=== PATIENT | female | born 1960 | race Caucasian/White ===

== ENCOUNTER 2018-06-05 19:43 | Inpatient (IN) | payer MEDICARE, OTHER ==
[2018-06-05 20:55] LABS: BASO % 0.6 % (0.0-2.0); EOS # 0.1 K/uL (0.0-0.7); EOS % 1.5 % (0.0-4.0); HEMOGLOBIN 9.5 g/dL (11.0-16.0); LYMPH # 1.7 K/uL (1.0-4.3); LYMPH % 44.6 % (20.0-40.0); MEAN CORPUSCULAR HEMOGLOBIN 23.3 pg (27.0-31.0); MEAN CORPUSCULAR HGB CONC 30.7 g/dL (33.0-37.0); MEAN PLATELET VOLUME 9.3 fL (7.2-11.7); MONO # 0.1 K/uL (0.0-0.8); MONO % 3.5 % (0.0-10.0); NEUT # 1.9 K/uL (1.8-7.0); NEUT % 49.8 % (50.0-75.0); NRBC % 0.1 % (0.0-2.0); RBC 4.06 Mil/uL (3.80-5.20); RED CELL DISTRIBUTION WIDTH 17.8 % (11.5-14.5); WHITE BLOOD COUNT 3.8 K/uL (4.8-10.8)
[2018-06-05 21:05] LABS: INR 1.1; PROTHROMBIN TIME 11.8 SECONDS (9.7-12.2)
--- NOTE | 2018-06-05 21:05 | C.PDOC ---
History Of Present Illness 57 y/o female presents to ED complaining of left sided chest pressure radiating up to her neck and numbness in her left arm, and a sensation that her AICD is vibrating since yesterday. States that shes had her AICD for approximately 7 years. Patients specialist is at a [facility] [place] who saw her one month ago and states that the leads were out of place and needs to be replaced. Denies cough, SOB, fever, or firing of AICD. Time Seen by Provider: 06/05/18 20:04 Chief Complaint (Nursing): Chest Pain History Per: Patient History/Exam Limitations: no limitations Onset/Duration Of Symptoms: Days Current Symptoms Are (Timing): Still Present Past Medical History Reviewed: Historical Data, Nursing Documentation, Vital Signs Vital Signs: Last Vital Signs Temp 98.6 F 06/05/18 19:53 Pulse 80 06/05/18 19:53 Resp 16 06/05/18 19:53 BP 116/74 06/05/18 19:53 Pulse Ox 99 06/05/18 19:53 - Medical History PMH: Back Problems, CHF, HTN Family History: States: No Known Family Hx - Social History Hx Alcohol Use: No Hx Substance Use: No - Immunization History Hx Tetanus Toxoid Vaccination: No Hx Influenza Vaccination: Yes Hx Pneumococcal Vaccination: No Review Of Systems Constitutional: Negative for: Fever Cardiovascular: Positive for: Other (left sided chest pressure radiating to neck) Respiratory: Negative for: Cough, Shortness of Breath Neurological: Positive for: Numbness (in L arm) Physical Exam - Physical Exam Appears: Non-toxic, No Acute Distress Skin: Warm, Dry Head: Atraumatic, Normacephalic Eye(s): bilateral: Normal Inspection Oral Mucosa: Moist Neck: Supple Cardiovascular: Rhythm Regular, No Murmur Respiratory: Normal Breath Sounds, No Rales, No Rhonchi, No Wheezing Gastrointestinal/Abdominal: Soft, No Tenderness Extremity: Capillary Refill (less than 2 seconds) Pulses: Left Radial: Normal Neurological/Psych: Oriented x3, Normal Speech Gait: Steady ED Course And Treatment - Laboratory Results Result Diagrams: 06/05/18 20:49 06/05/18 20:49 ECG Rhythm: Sinus Rhythm (normal) Interpretation Of ECG: Normal axis. T wave inversion in [address] No acute ST changes. Rate From EC O2 Sat by Pulse Oximetry: 99 (RA) Pulse Ox Interpretation: Normal Progress Note: Bloodwork, chest x-ray, and urine ordered. Disposition - Disposition Forms: [facility] (Japanese) - Scribe Statement The provider has reviewed the documentation as recorded by the Scribmonica Dsouza Provider Attestation: All medical record entries made by the Scribe were at my direction and personally dictated by me. I have reviewed the chart and agree that the record accurately reflects my personal performance of the history, physical exam, medical decision making, and the department course for this patient. I have also personally directed, reviewed, and agree with the discharge instructions and d isposition.
[2018-06-05 21:35] LABS: ALB/GLOB RATIO 1.2 (1.0-2.1); ALBUMIN 4.3 g/dL (3.5-5.0); ALT/SGPT 27 U/L (9-52); AST/SGOT 26 U/L (14-36); BLOOD UREA NITROGEN 18 mg/dL (7-17); CALCIUM 9.3 mg/dl (8.6-10.4); GFR NON-AFRICAN AMERICAN 52
[2018-06-05 21:53] LABS: CK-MB 0.98 ng/mL (0.0-3.38)
[2018-06-05 21:56] LABS: HCG,QUALITATIVE URINE NEGATIVE (NEGATIVE)
[2018-06-05 21:58] LABS: SQUAMOUS EPITHIAL 35 /hpf (0-5); URINE BACTERIA MOD (<OCC); URINE BILIRUBIN NEGATIVE (NEGATIVE); URINE BLOOD 1+ (NEGATIVE); URINE CLARITY Hazy (Clear); URINE COLOR Yellow (YELLOW); URINE GLUCOSE (UA) NORMAL (Normal); URINE LEUKOCYTE ESTERASE 3+ Leu/uL (Negative); URINE PROTEIN NEGATIVE (NEGATIVE); URINE UROBILINOGEN NORMAL mg/dL (0.2-1.0)
[2018-06-05] MEDS ORDERED: Potassium Chloride 20 mEq ER Tab PO STA (21:59)
[2018-06-05] MEDS ORDERED: Potassium Chloride 20 mEq ER Tab PO ONE (22:09)
--- NOTE | 2018-06-06 00:07 | CP.PCM.HP ---
History of Present Illness - History of Present Illness History of Present Illness: H&P for Dr. Haro. 57 F w/ PMHx: HTN, CHF w/ AICD placement 7 years prior, presents to ED for 1 day of "humming & vibrating" noise from AICD. Along with episodes, patient states she feels chest pressure that radiates to left arm. Patient at present time did not have any symptoms but endorses since last evening, she has several episodes of these. The events provoked while sitting down with no exertion present. Patient states symptoms last for about 10 minutes and self-resolve. Patient Dyspnea when walking > 1 block (chronic), denies N/V, fevers/ chills, abdominal pain, headaches, vision changes. Patient does state her knee occasionally hurts, but that has been ongoing for the last several months and resolves with Tylenol. Patient states she had an appointment at [facility] about 1 month prior with her morning news anchor that had informed her that the leads of the AICD were not at correct location and would likely need to be replaced in July. ROS: Dyspnea when walking > 1 block (chronic), denies N/V, fevers/ chills, abdominal pain, headaches, vision changes. Patient does state her knee occasionally hurts, but that has been ongoing for the last several months and resolves with Tylenol. PMD: Dr. Haro PMHx: HTN, CHF, AICD (y years prior) Meds: Metoprolol tartrate 100 mg BID, Lasix 40mg daily, aspirin 81 mg daily, atorvastatin (patient unsure of dosage), spinorolactone 25mg BID, Quinapril 40mg daily Allergies: NKDA Surgeries: AICD placement 7 years prior, R eye surgery (pt unsure exact details) Social: denies tobacco, ETOH, illicit drug use Present on Admission - Present on Admission Any Indicators Present on Admission: No Review of Systems - Constitutional Constitutional: absent: Chills, Night Sweats - EENT Eyes: absent: Blurred Vision - Cardiovascular Cardiovascular: Chest Pain, Chest Pain at Rest, Chest Pain with Activity, Dyspnea on Exertion Additional comments: intermit chest pain - Respiratory Respiratory: Dyspnea on Exertion. absent: Cough - Gastrointestinal Gastrointestinal: absent: Abdominal Pain, Bloating - Genitourinary Genitourinary: absent: Change in Urinary Stream - Musculoskeletal Musculoskeletal: Arthralgias. absent: Muscle Weakness Additional comments: knee pain occasionally - Neurological Neurological: absent: Burning Sensations, Headaches Past Patient History - Infectious Disease Hx of Infectious Diseases: None - Past Social History Smoking Status: Never Smoked - CARDIAC Hx Congestive Heart Failure: Yes Hx Hypertension: Yes - PSYCHIATRIC Hx Substance Use: No - SURGICAL HISTORY Hx Section: Yes Hx Orthopedic Surgery: Yes (back) - ANESTHESIA Hx Anesthesia: Yes Hx Anesthesia Reactions: No Meds Allergies/Adverse Reactions: Allergies Allergy/AdvReac Type Severity Reaction Status Date / Time No Known Allergies Allergy Verified 06/05/18 19:56 Physical Exam - Constitutional Appears: Non-toxic, No Acute Distress - Head Exam Head Exam: ATRAUMATIC, NORMAL INSPECTION, NORMOCEPHALIC - Eye Exam Eye Exam: EOMI, Normal appearance Pupil Exam: NORMAL ACCOMODATION - ENT Exam ENT Exam: Mucous Membranes Moist - Respiratory Exam Respiratory Exam: Clear to Auscultation Bilateral, NORMAL BREATHING PATTERN. absent: Rales, Rhonchi, Wheezes - Cardiovascular Exam Cardiovascular Exam: +S1, +S2. absent: Irregular Rhythm, Systolic Murmur - GI/Abdominal Exam GI & Abdominal Exam: Normal Bowel Sounds, Soft. absent: Distended, Firm, Guarding - Extremities Exam Extremities exam: Positive for: normal capillary refill, normal inspection, pedal pulses present. Negative for: calf tenderness, joint swelling, pedal edema, tenderness - Back Exam Back exam: absent: CVA tenderness (L), CVA tenderness (R) - Neurological Exam Neurological exam: Alert, CN II-XII Intact, Oriented x3 - Psychiatric Exam Psychiatric exam: Normal Affect, Normal Mood - Skin Skin Exam: Dry, Intact, Normal Color, Warm Results - Vital Signs Recent Vital Signs: Last Vital Signs Temp 98.0 F 06/05/18 23:39 Pulse 71 06/05/18 23:39 Resp 14 06/05/18 23:39 BP 98/58 L 06/05/18 23:39 Pulse Ox 99 06/05/18 23:39 - Labs Result Diagrams: 06/05/18 20:49 06/05/18 20:49 Labs: Laboratory Results - last 24 hr 06/05/18 06/05/18 06/05/18 20:49 20:49 20:49 WBC 3.8 L D RBC 4.06 Hgb 9.5 L D Hct 30.8 L MCV 76.0 L D MCH 23.3 L MCHC 30.7 L RDW 17.8 H Plt Count 235 MPV 9.3 Neut % (Auto) 49.8 L Lymph % (Auto) 44.6 H [place] % (Auto) 3.5 Eos % (Auto) 1.5 Baso % (Auto) 0.6 Neut # (Auto) 1.9 Lymph # (Auto) 1.7 [place] # (Auto) 0.1 Eos # (Auto) 0.1 Baso # (Auto) 0.0 PT 11.8 INR 1.1 APTT 35 H Sodium 143 Potassium 3.4 L Chloride 103 Carbon Dioxide 29 Anion Gap 15 BUN 18 H Creatinine 1.1 Est GFR ( Amer) > 60 Est GFR (Non-Af Amer) 52 Random Glucose 87 Calcium 9.3 Total Bilirubin 0.5 AST 26 ALT 27 Alkaline Phosphatase 92 Total Creatine Kinase 170 H CK-MB (Mass) 0.98 Troponin I < 0.0120 NT-Pro-B Natriuret Pep Total Protein 8.1 Albumin 4.3 Globulin 3.8 Albumin/Globulin Ratio 1.2 Urine Color Urine Clarity Urine pH Ur Specific [place] Urine Protein Urine Glucose (UA) Urine Ketones Urine Blood Urine Nitrate Urine Bilirubin Urine Urobilinogen Ur Leukocyte Esterase Urine WBC (Auto) Urine RBC (Auto) Ur Squamous Epith Cells Urine Bacteria Urine HCG, Qual 06/05/18 06/05/18 21:47 22:41 WBC RBC Hgb Hct MCV MCH MCHC RDW Plt Count MPV Neut % (Auto) Lymph % (Auto) [place] % (Auto) Eos % (Auto) Baso % (Auto) Neut # (Auto) Lymph # (Auto) [place] # (Auto) Eos # (Auto) Baso # (Auto) PT INR APTT Sodium Potassium Chloride Carbon Dioxide Anion Gap BUN Creatinine Est GFR ( Amer) Est GFR (Non-Af Amer) Random Glucose Calcium Total Bilirubin AST ALT Alkaline Phosphatase Total Creatine Kinase CK-MB (Mass) Troponin I NT-Pro-B Natriuret Pep 102 Total Protein Albumin Globulin Albumin/Globulin Ratio Urine Color Yellow Urine Clarity Hazy Urine pH 5.0 Ur Specific [place] 1.025 Urine Protein Negative Urine Glucose (UA) Normal Urine Ketones Negative Urine Blood 1+ H Urine Nitrate Negative Urine Bilirubin Negative Urine Urobilinogen Normal Ur Leukocyte Esterase 3+ H Urine WBC (Auto) 38 H Urine RBC (Auto) 9 H Ur Squamous Epith Cells 35 H Urine Bacteria Mod H Urine HCG, Qual Negative Assessment & Plan - Assessment and Plan (Free Text) Assessment: 57 F w/ PMHx: HTN, CHF w/ AICD placement 7 years prior, presents to ED for 1 day of "humming & vibrating" noise from AICD. Along with episodes, patient states she feels chest pressure that radiates to left arm: Chest pain R/o ACIS - Vitals stable - ERICKA X 1 WNL, EKG - NSR, CXR - will wait official read - BNP 100 - Repeat ERICKA & EKG @ 2AM & 8AM - F/u Cardio, Dr. Mccullough recs - F/u TSH CHF: - prior Hx - AICD in place BNP 100 - consider f/u with morning news anchor - c/w home meds: metoprolol tartrate 100mg BID quinapril 40mg daily lasix 40mg daily spironolactone 25 mg BID - f/u ECHO HTN - prior Hx - c/w home meds: metoprolol tartrate 100mg BID quinapril 40mg daily lasix 40mg daily spironolactone 25 mg BID aspirin 81 mg daily crestor 5mg daily Prophylaxis - DVT: Heparin 5000 units Q8 - GI: Pepcid 20 mg daily
[2018-06-06 04:28] LABS: HEMOGLOBIN 8.5 g/dL (11.0-16.0); MEAN PLATELET VOLUME 9.2 fL (7.2-11.7); MONO # 0.1 K/uL (0.0-0.8); NRBC % 0.1 % (0.0-2.0)
[2018-06-06 04:32] LABS: EOS % 1.4 % (0.0-4.0); MEAN CELL VOLUME 76.2 fL (81.0-99.0); MEAN CORPUSCULAR HGB CONC 30.2 g/dL (33.0-37.0); MONO % 2.1 % (0.0-10.0); NEUT # 1.3 K/uL (1.8-7.0); NEUT % 38.5 % (50.0-75.0); RBC 3.69 Mil/uL (3.80-5.20); RED CELL DISTRIBUTION WIDTH 16.9 % (11.5-14.5); WHITE BLOOD COUNT 3.5 K/uL (4.8-10.8)
[2018-06-06 04:42] LABS: ALB/GLOB RATIO 1.1 (1.0-2.1); ALBUMIN 3.5 g/dL (3.5-5.0); ALT/SGPT 27 U/L (9-52); AST/SGOT 19 U/L (14-36); BLOOD UREA NITROGEN 19 mg/dL (7-17); CALCIUM 8.8 mg/dl (8.6-10.4); GFR NON-AFRICAN AMERICAN > 60
[2018-06-06 05:59] LABS: CK-MB 0.65 ng/mL (0.0-3.38)
--- NOTE | 2018-06-06 08:27 | RAD ---
Date of service: 06/05/2018 HISTORY: chest pressure COMPARISON: None available. FINDINGS: LUNGS: Mild venous congestion. Bilateral hilar prominence. PLEURA: No significant pleural effusion identified, no pneumothorax apparent. CARDIOVASCULAR: Aortic atherosclerotic calcification present. Normal cardiac size. Enlarged ectatic aorta. Left-sided pacemaker. OSSEOUS STRUCTURES: No significant abnormalities. VISUALIZED UPPER ABDOMEN: Normal. OTHER FINDINGS: None. IMPRESSION: Mild venous congestion. Bilateral hilar prominence.
--- NOTE | 2018-06-06 09:50 | CP.PCM.PN ---
Subjective - Date & Time of Evaluation Date of Evaluation: 06/06/18 Time of Evaluation: 09:50 - Subjective Subjective: Pt seen and examined at bedside. Pt reports dysuria, UA pos, will start on Cipro on d/c for uti denies cp sob fc nv Objective - Vital Signs/Intake and Output Vital Signs (last 24 hours): Temp Pulse Resp BP Pulse Ox 98.3 F 73 18 115/76 98 06/06/18 07:00 06/06/18 07:00 06/06/18 07:00 06/06/18 07:00 06/06/18 07:00 - Medications Medications: Current Medications Acetaminophen (Tylenol 325mg Tab) 650 mg PO Q6 PRN PRN Reason: Pain, Mild (1-3) Aspirin (Ecotrin) 81 mg PO DAILY OSBALDO Enalapril Maleate (Vasotec) 20 mg PO DAILY OSBALDO Famotidine (Pepcid) 20 mg PO DAILY OSBALDO Furosemide (Lasix) 40 mg PO DAILY [facility] Heparin Sodium (Porcine) (Heparin) 5,000 units SC Q8 [facility] Last Admin: 06/06/18 06:16 Dose: 5,000 units Influenza Virus Vaccine (Fluzone Quad [id number]) 60 mcg IM .ONCE ONE Stop: 06/08/18 10:01 Metoprolol Tartrate (Lopressor) 100 mg PO BID [facility] Pneumococcal Polyvalent Vaccine (Pneumovax 23 Vaccine) 0.5 ml IM .ONCE ONE Stop: 06/08/18 14:01 Rosuvastatin Calcium (Crestor) 5 mg PO HS OSBALDO Spironolactone (Aldactone) 25 mg PO BID [facility] - Labs Labs: 06/06/18 04:20 06/06/18 04:20 PT 11.8 SECONDS (9.7-12.2) 06/05/18 20:49 INR 1.1 06/05/18 20:49 APTT 35 SECONDS (21-34) H 06/05/18 20:49 Assessment and Plan - Assessment and Plan (Free Text) Assessment: 57 F w/ PMHx: HTN, CHF w/ AICD placement 7 years prior, presents to ED for 1 day of "humming & vibrating" noise from AICD. Along with episodes, patient states she feels chest pressure that radiates to left arm: Chest pain R/o ACIS - Vitals stable - ERICKA X 2 WNL, EKG - NSR, - CXR: mild pulm venous congestion - BNP 100 - F/u Cardio, Dr. Mccullough recs - TSH: normal UTI -Cipro 250 BID CHF: - prior Hx - AICD in place BNP 100 - consider f/u with manager validation - c/w home meds: metoprolol tartrate 100mg BID quinapril 40mg daily lasix 40mg daily spironolactone 25 mg BID - 06/06 ECHO: HTN - prior Hx - c/w home meds: metoprolol tartrate 100mg BID quinapril 40mg daily lasix 40mg daily spironolactone 25 mg BID aspirin 81 mg daily crestor 5mg daily Prophylaxis - DVT: Heparin 5000 units Q8 - GI: Pepcid 20 mg daily
[2018-06-06] MEDS ORDERED: QUINAPRIL 40 MG PO SCH (10:00)
[2018-06-06 10:57] LABS: CK-MB 0.74 ng/mL (0.0-3.38)
--- NOTE | 2018-06-06 11:15 | CP.PCM.DIS ---
Provider - Provider Date of Admission: 06/05/18 22:35 Attending physician: Arvind Haro Jr, MD Time Spent in preparation of Discharge (in minutes): 45 Diagnosis - Discharge Diagnosis (1) UTI (urinary tract infection) Status: Acute (2) AICD (automatic cardioverter/defibrillator) present Status: Chronic (3) CHF (congestive heart failure) Status: Chronic (4) HTN (hypertension) Status: Chronic Hospital Course - Lab Results Lab Results: Most Recent Lab Values WBC 3.5 K/uL (4.8-10.8) L 06/06/18 04:20 RBC 3.69 Mil/uL (3.80-5.20) L 06/06/18 04:20 Hgb 8.5 g/dL (11.0-16.0) L 06/06/18 04:20 Hct 28.1 % (34.0-47.0) L 06/06/18 04:20 MCV 76.2 fL (81.0-99.0) L 06/06/18 04:20 MCH 23.0 pg (27.0-31.0) L 06/06/18 04:20 MCHC 30.2 g/dL (33.0-37.0) L 06/06/18 04:20 RDW 16.9 % (11.5-14.5) H 06/06/18 04:20 Plt Count 196 K/uL (130-400) 06/06/18 04:20 MPV 9.2 fL (7.2-11.7) 06/06/18 04:20 Neut % (Auto) 38.5 % (50.0-75.0) L 06/06/18 04:20 Lymph % (Auto) 57.0 % (20.0-40.0) H 06/06/18 04:20 [place] % (Auto) 2.1 % (0.0-10.0) 06/06/18 04:20 Eos % (Auto) 1.4 % (0.0-4.0) 06/06/18 04:20 Baso % (Auto) 1.0 % (0.0-2.0) 06/06/18 04:20 Neut # (Auto) 1.3 K/uL (1.8-7.0) L 06/06/18 04:20 Lymph # (Auto) 2.0 K/uL (1.0-4.3) 06/06/18 04:20 [place] # (Auto) 0.1 K/uL (0.0-0.8) 06/06/18 04:20 Eos # (Auto) 0.0 K/uL (0.0-0.7) 06/06/18 04:20 Baso # (Auto) 0.0 K/uL (0.0-0.2) 06/06/18 04:20 PT 11.8 SECONDS (9.7-12.2) 06/05/18 20:49 INR 1.1 06/05/18 20:49 APTT 35 SECONDS (21-34) H 06/05/18 20:49 Sodium 140 mmol/L (132-148) 06/06/18 04:20 Potassium 4.2 mmol/L (3.6-5.2) 06/06/18 04:20 Chloride 105 mmol/L (98-107) 06/06/18 04:20 Carbon Dioxide 26 mmol/L (22-30) 06/06/18 04:20 Anion Gap 14 (10-20) 06/06/18 04:20 BUN 19 mg/dL (7-17) H 06/06/18 04:20 Creatinine 0.9 mg/dL (0.7-1.2) 06/06/18 04:20 Est GFR ( Amer) > 60 06/06/18 04:20 Est GFR (Non-Af Amer) > 60 06/06/18 04:20 POC Glucose (mg/dL) 134 mg/dL (65-110) H 06/05/18 20:40 Random Glucose 122 mg/dL (65-105) H 06/06/18 04:20 Calcium 8.8 mg/dl (8.6-10.4) 06/06/18 04:20 Phosphorus 3.9 mg/dL (2.5-4.5) 06/06/18 04:20 Magnesium 1.9 mg/dL (1.6-2.3) 06/06/18 04:20 Total Bilirubin 0.4 mg/dL (0.2-1.3) 06/06/18 04:20 AST 19 U/L (14-36) 06/06/18 04:20 ALT 27 U/L (9-52) 06/06/18 04:20 Alkaline Phosphatase 79 U/L (38-126) 06/06/18 04:20 Total Creatine Kinase 152 U/L (30-135) H 06/06/18 10:21 CK-MB (Mass) 0.74 ng/mL (0.0-3.38) 06/06/18 10:21 Troponin I < 0.0120 ng/mL (0.00-0.120) 06/06/18 10:21 NT-Pro-B Natriuret Pep 102 pg/mL (0-900) 06/05/18 22:41 Total Protein 6.7 g/dL (6.3-8.3) 06/06/18 04:20 Albumin 3.5 g/dL (3.5-5.0) 06/06/18 04:20 Globulin 3.2 gm/dL (2.2-3.9) 06/06/18 04:20 Albumin/Globulin Ratio 1.1 (1.0-2.1) 06/06/18 04:20 TSH 3rd Generation 1.36 mIU/L (0.46-4.68) 06/06/18 04:20 Urine Color Yellow (YELLOW) 06/05/18 21:47 Urine Clarity Hazy (Clear) 06/05/18 21:47 Urine pH 5.0 (5.0-8.0) 06/05/18 21:47 Ur Specific [place] 1.025 (1.003-1.030) 06/05/18 21:47 Urine Protein Negative mg/dL (NEGATIVE) 06/05/18 21:47 Urine Glucose (UA) Normal mg/dL (Normal) 06/05/18 21:47 Urine Ketones Negative mg/dL (NEGATIVE) 06/05/18 21:47 Urine Blood 1+ (NEGATIVE) H 06/05/18 21:47 Urine Nitrate Negative (NEGATIVE) 06/05/18 21:47 Urine Bilirubin Negative (NEGATIVE) 06/05/18 21:47 Urine Urobilinogen Normal mg/dL (0.2-1.0) 06/05/18 21:47 Ur Leukocyte Esterase 3+ Mey/uL (Negative) H 06/05/18 21:47 Urine WBC (Auto) 38 /hpf (0-5) H 06/05/18 21:47 Urine RBC (Auto) 9 /hpf (0-3) H 06/05/18 21:47 Ur Squamous Epith Cells 35 /hpf (0-5) H 06/05/18 21:47 Urine Bacteria Mod (<OCC) H 06/05/18 21:47 Urine HCG, Qual Negative (NEGATIVE) 06/05/18 21:47 - Hospital Course Hospital Course: 57 F w/ PMHx: HTN, CHF w/ AICD placement 7 years prior, presents to ED for 1 day of "humming & vibrating" noise from AICD. Along with episodes, patient states she feels chest pressure that radiates to left arm. Patient at present time did not have any symptoms but endorses since last evening, she has several episodes of these. The events provoked while sitting down with no exertion present. Patient states symptoms last for about 10 minutes and self-resolve. Patient Dyspnea when walking > 1 block (chronic), denies N/V, fevers/ chills, abdominal pain, headaches, vision changes. Patient does state her knee occasionally hurts, but that has been ongoing for the last several months and resolves with Tylenol. Patient states she had an appointment at [facility] about 1 month prior with her kardex clerk that had informed her that the leads of the AICD were not at correct location and would likely need to be replaced in July. ROS: Dyspnea when walking > 1 block (chronic), denies N/V, fevers/ chills, abdominal pain, headaches, vision changes. Patient does state her knee occasionally hurts, but that has been ongoing for the last several months and resolves with Tylenol. PMD: Dr. Haro PMHx: HTN, CHF, AICD (y years prior) Meds: Metoprolol tartrate 100 mg BID, Lasix 40mg daily, aspirin 81 mg daily, atorvastatin (patient unsure of dosage), spinorolactone 25mg BID, Quinapril 40mg daily Allergies: NKDA Surgeries: AICD placement 7 years prior, R eye surgery (pt unsure exact details) Social: denies tobacco, ETOH, illicit drug use Hospital Course: Pt admitted for assement of AICD function, echo and observation. Pt chest pain improved. Pt restarted on home meds. Pt seen by cardio (carmen), medically stable for d/c home. Pt to follow up with Dr Haro and Dr Mccullough outpt. Imaging and Diagnostics: EKGs and ROMIs neg x 3 Echo: D/C instructions Pt is to be discharged home Pt is to take the following home medications: Metoprolol 100mg 8am , 8pm Enalapril 20mg 8am, 8pm Spirinolactone 25mg 8am, 8pm Lasix 40mg 8pm Aspiring 81mg 8am Ciprofloxacin 250mg twice a day 8am, 8pm for 7 days Pt is to follow up with Dr Haro in office within one week call Pt is to follow up with Dr Mccullough cardiology in office within one week call Take care and be well Saqib Vilmakevin DO This is a summary [facility] for [facility] Discharge Exam - Head Exam Head Exam: ATRAUMATIC, NORMAL INSPECTION, NORMOCEPHALIC Discharge Plan - Discharge Medications Prescriptions: Aspirin [Ecotrin] 81 mg PO DAILY #30 tabec Enalapril Maleate [Vasotec] 20 mg PO DAILY #60 tab Furosemide [Lasix] 40 mg PO DAILY #30 tab Metoprolol Tartrate [Lopressor] 100 mg PO BID #60 tab Rosuvastatin Calcium [Crestor] 5 mg PO HS #90 tab Spironolactone [Aldactone] 25 mg PO BID #60 tab - Follow Up Plan Condition: GOOD Disposition: HOME/ ROUTINE Instructions: Heart Failure (DC), Heart Failure (GEN), Pacemaker (DC), Pacemaker (GEN), Pulmonary Edema (DC), Pulmonary Edema (GEN), Urinary Tract Infection in Women (DC), Urinary Tract Infection in Men (DC), Ascites (DC), Ascites (GEN), Dysuria (GEN), Hypertension (DC), Hypertension (GEN) Additional Instructions: Pt is to be discharged home Pt is to take the following home medications: Metoprolol 100mg 8am , 8pm Enalapril 20mg 8am, 8pm Spirinolactone 25mg 8am, 8pm Lasix 40mg 8pm Aspiring 81mg 8am Ciprofloxacin 250mg twice a day 8am, 8pm for 7 days Pt is to follow up with Dr Haro in office within one week call Pt is to follow up with Dr Mccullough cardiology in office within 2 weeks call Take care and be well Saqib Bran DO Referrals: Lj Mccullough MD [Staff Provider] - Arvind Haro Jr., MD [Medical Doctor] -
--- NOTE | 2018-06-06 12:45 | CARD ---
APPROVED REPORT Date of service: 06/06/2018 EKG Measurement Heart [id number] <Conclusion> Normal sinus rhythm Minimal voltage criteria for LVH, may be normal variant Nonspecific T wave abnormality Abnormal ECG
--- NOTE | 2018-06-06 12:47 | CARD ---
APPROVED REPORT Date of service: 06/06/2018 EKG Measurement Heart [id number] <Conclusion> Normal sinus rhythm Moderate voltage criteria for LVH, may be normal variant Nonspecific ST and T wave abnormality Abnormal ECG
--- NOTE | 2018-06-06 12:50 | CARD ---
APPROVED REPORT Date of service: 06/05/2018 EKG Measurement Heart [id number] <Conclusion> Normal sinus rhythm Moderate voltage criteria for LVH, may be normal variant Nonspecific T wave abnormality Abnormal ECG
[2018-06-06 14:53] LABS: SQUAMOUS EPITHIAL 1 /hpf (0-5); URINE BACTERIA RARE (<OCC); URINE BILIRUBIN NEGATIVE (NEGATIVE); URINE BLOOD 1+ (NEGATIVE); URINE CLARITY Clear (Clear); URINE COLOR Straw (YELLOW); URINE GLUCOSE (UA) NORMAL (Normal); URINE LEUKOCYTE ESTERASE NEG Leu/uL (Negative); URINE PROTEIN NEGATIVE (NEGATIVE); URINE UROBILINOGEN NORMAL mg/dL (0.2-1.0)
[2018-06-06 16:23] VITALS: RESP 20
--- NOTE | 2018-06-06 19:44 | CARD ---
APPROVED REPORT Date of service: 06/06/2018 EXAM: Two-dimensional and M-mode echocardiogram with Doppler and color Doppler. Other Information Quality : GoodRhythm : INDICATION Chest Pain Congestive Heart Failure Surgery/Intervention ICD/Pacemaker: 2D DIMENSIONS IVSd1.0 (0.7-1.1cm)Aortic Root (2D)3.2 (2.0-3.7cm) LVDd5.1 (3.9-5.9cm)PWd0.9 (0.7-1.1cm) LA Syobhm70 (18-58mL)LVDs3.3 (2.5-4.0cm) FS (%) 35.1 %LVEF (%)55.0 (>50%) LVEF (Renee's)53.75 %IVC0.00 cm M-Mode DIMENSIONS RVDd2.40 (2.1-3.2cm)Left Atrium (MM)3.35 (2.5-4.0cm) IVSd1.02 (0.7-1.1cm)Aortic Root3.33 (2.2-3.7cm) LVDd4.79 (4.0-5.6cm)Aortic Cusp Exc.2.11 (1.5-2.0cm) PWd1.11 (0.7-1.1cm)FS (%) 29 % LVDs3.42 (2.0-3.8cm)LVEF (%)55 (>50%) Mitral Valve MV E Dktsijdb63.5cm/sMV A Ozunffjj88.4cm/sE/A ratio1.1 TDI Lateral E' Peak V5.77cm/sMedial E' Peak V8.22cm/sE/Lateral E'14.6 E/Medial E'10.3 Tricuspid Valve TR Peak [id number]/sTR Peak Gr.[id number] LEFT VENTRICLE The left ventricle is normal size. There is normal left ventricular wall thickness. Left ventricle systolic function is normal. The Ejection Fraction is 55-60%. There is normal LV segmental wall motion. Transmitral Doppler flow pattern is Grade I-abnormal relaxation pattern. There is no ventricular septal defect visualized. RIGHT VENTRICLE The right ventricle is normal size. The right ventricular systolic function is normal. There is a pacemaker lead in the right ventricle. ATRIA The left atrium is mildly dilated. The right atrium size is normal. AORTIC VALVE The aortic valve is normal in structure. The aortic valve is tri-cuspid. No aortic regurgitation is present. There is no aortic valvular stenosis. MITRAL VALVE The mitral valve is normal in structure. There is no evidence of mitral valve prolapse. There is no mitral valve regurgitation noted. TRICUSPID VALVE The tricuspid valve is normal in structure. There is trace tricuspid regurgitation. Right ventricular systolic pressure is estimated at less than 30 mmHg. There is no pulmonary hypertension. PULMONIC VALVE The pulmonary valve is normal in structure. There is trace pulmonic valvular regurgitation. GREAT VESSELS The aortic root is normal in size. The ascending aorta is normal in size. The IVC is normal in size and collapses >50% with inspiration. PERICARDIAL EFFUSION There is no pericardial effusion. <Conclusion> Transmitral Doppler flow pattern is Grade I-abnormal relaxation pattern. Left ventricle systolic function is normal. The Ejection Fraction is 55-60%.
--- NOTE | 2018-06-06 23:09 | CP.PCM.PN ---
Subjective - Date & Time of Evaluation Date of Evaluation: 06/06/18 Time of Evaluation: 16:30 - Subjective Subjective: Consulted for ICD issues Will check ICD tomorrow EP consult with Dr. Stokes Objective - Vital Signs/Intake and Output Vital Signs (last 24 hours): Temp Pulse Resp BP Pulse Ox 97.6 F 65 20 103/68 100 06/06/18 15:00 06/06/18 16:00 06/06/18 15:00 06/06/18 15:00 06/06/18 15:00 Intake and Output: 06/06/18 06/07/18 18:59 06:59 Intake Total 240 Balance 240 - Medications Medications: Current Medications Acetaminophen (Tylenol 325mg Tab) 650 mg PO Q6 PRN PRN Reason: Pain, Mild (1-3) Aspirin (Ecotrin) 81 mg PO DAILY [facility] Last Admin: 06/06/18 10:39 Dose: 81 mg Enalapril Maleate (Vasotec) 20 mg PO DAILY [facility] Last Admin: 06/06/18 10:39 Dose: 20 mg Famotidine (Pepcid) 20 mg PO DAILY [facility] Last Admin: 06/06/18 10:39 Dose: 20 mg Furosemide (Lasix) 40 mg PO DAILY [facility] Last Admin: 06/06/18 10:42 Dose: 40 mg Heparin Sodium (Porcine) (Heparin) 5,000 units SC Q8 [facility] Last Admin: 06/06/18 22:27 Dose: 5,000 units Influenza Virus Vaccine (Fluzone Quad [id number]) 60 mcg IM .ONCE ONE Stop: 06/08/18 10:01 Metoprolol Tartrate (Lopressor) 100 mg PO BID [facility] Last Admin: 06/06/18 17:45 Dose: Not Given Pneumococcal Polyvalent Vaccine (Pneumovax 23 Vaccine) 0.5 ml IM .ONCE ONE Stop: 06/08/18 14:01 Rosuvastatin Calcium (Crestor) 5 mg PO HS [facility] Last Admin: 06/06/18 22:27 Dose: 5 mg Spironolactone (Aldactone) 25 mg PO BID [facility] Last Admin: 06/06/18 17:44 Dose: Not Given - Labs Labs: 06/06/18 04:20 06/06/18 04:20 PT 11.8 SECONDS (9.7-12.2) 06/05/18 20:49 INR 1.1 06/05/18 20:49 APTT 35 SECONDS (21-34) H 06/05/18 20:49
[2018-06-07 08:13] LABS: BASO % 0.9 % (0.0-2.0); EOS # 0.1 K/uL (0.0-0.7); EOS % 1.8 % (0.0-4.0); HEMOGLOBIN 9.8 g/dL (11.0-16.0); LYMPH # 2.2 K/uL (1.0-4.3); LYMPH % 58.1 % (20.0-40.0); MEAN CELL VOLUME 76.5 fL (81.0-99.0); MEAN CORPUSCULAR HGB CONC 31.3 g/dL (33.0-37.0); MEAN PLATELET VOLUME 9.5 fL (7.2-11.7); MONO # 0.1 K/uL (0.0-0.8); MONO % 3.4 % (0.0-10.0); NEUT # 1.4 K/uL (1.8-7.0); NEUT % 35.8 % (50.0-75.0); RBC 4.1 Mil/uL (3.80-5.20); RED CELL DISTRIBUTION WIDTH 17.2 % (11.5-14.5); WHITE BLOOD COUNT 3.8 K/uL (4.8-10.8)
[2018-06-07 08:54] LABS: ALB/GLOB RATIO 1.2 (1.0-2.1); ALBUMIN 4.3 g/dL (3.5-5.0); ALT/SGPT 27 U/L (9-52); AST/SGOT 20 U/L (14-36); BLOOD UREA NITROGEN 21 mg/dL (7-17); CALCIUM 9.5 mg/dl (8.6-10.4); GFR NON-AFRICAN AMERICAN > 60
--- NOTE | 2018-06-07 21:23 | CP.PCM.CON ---
History of Present Illness - History of Present Illness History of Present Illness: CARDIAC ELECTROPHYSIOLOGY CONSULT Re: ICD vibration She was admitted with humming sounds in the left chest originating from the im planted defibrillator associated with chest discomfort Denied palpitations syncope ICD discharge exposure to electro-magnetic equipment, surgical cautery or chest trauma ICD interrogation showed normal pace sense and impedance parameters; the generator was however showed effective replacement indicators Past medical history significant for systemic hypertension dilated cardiomyopathy ICD implant at the [facility] in 2009 Past surgery: ICD; eye surgery Denied smoking alcohol or drug abuse Exam: no distress normal venous pressures Clear lungs ICD site unremarkable EKG: sinus; LVH; normal QTC intervals Labs: reviewed CXR: reviewed: dual coil single lead ICD ICD interrogation: [employer] 02.24.2010 Implant date Capture: 2.75V @ 0.5ms Impedance: 330.59 Sensed R= 10mV Generator: @ JOHNNIE Events; Multiple episodes of tachycardia VVI 30 % pace: 0 Tachycardia zones: 150/190/230 Past Patient History - Infectious Disease Hx of Infectious Diseases: None - Past Medical History & Family History Past Medical History?: Yes - Past Social History Smoking Status: Never Smoked - CARDIAC Hx Cardiac Disorders: Yes Hx Congestive Heart Failure: Yes Hx Hypertension: Yes Hx Internal Defibrillator: Yes - PULMONARY Hx Respiratory Disorders: No - NEUROLOGICAL Hx Neurological Disorder: No - HEENT Hx HEENT Problems: No - RENAL Hx Chronic Kidney Disease: No - ENDOCRINE/METABOLIC Hx Endocrine Disorders: No - HEMATOLOGICAL/ONCOLOGICAL Hx Blood Disorders: No - INTEGUMENTARY Hx Dermatological Problems: No - MUSCULOSKELETAL/RHEUMATOLOGICAL Hx Musculoskeletal Disorders: No Hx Falls: No - GASTROINTESTINAL Hx Gastrointestinal Disorders: No - GENITOURINARY/GYNECOLOGICAL Hx Genitourinary Disorders: No - PSYCHIATRIC Hx Psychophysiologic Disorder: No Hx Substance Use: No - SURGICAL HISTORY Hx Surgeries: Yes Hx Section: Yes Hx Orthopedic Surgery: Yes (back) Other/Comment: AICD 7 years ago - ANESTHESIA Hx Anesthesia: Yes Hx Anesthesia Reactions: No Meds Home Medications: Home Medication List Medication Instructions Recorded Confirmed Type Aspirin [Ecotrin] 81 mg PO DAILY #30 tabec 06/06/18 Rx Enalapril Maleate [Vasotec] 20 mg PO DAILY #60 tab 06/06/18 Rx Furosemide [Lasix] 40 mg PO DAILY #30 tab 06/06/18 Rx Metoprolol Tartrate [Lopressor] 100 mg PO BID #60 tab 06/06/18 Rx Rosuvastatin Calcium [Crestor] 5 mg PO HS #90 tab 06/06/18 Rx Spironolactone [Aldactone] 25 mg PO BID #60 tab 06/06/18 Rx Ciprofloxacin [Cipro] 250 mg PO BID #14 tab 06/07/18 Rx Fluconazole [Diflucan] 100 mg PO ONCE #1 tab 06/07/18 Rx Allergies/Adverse Reactions: Allergies Allergy/AdvReac Type Severity Reaction Status Date / Time No Known Allergies Allergy Verified 06/05/18 19:56 - Medications Medications: Current Medications Acetaminophen (Tylenol 325mg Tab) 650 mg PO Q6 PRN PRN Reason: Pain, Mild (1-3) Aspirin (Ecotrin) 81 mg PO DAILY [facility] Last Admin: 06/07/18 09:33 Dose: 81 mg Enalapril Maleate (Vasotec) 20 mg PO DAILY [facility] Last Admin: 06/07/18 09:33 Dose: 20 mg Famotidine (Pepcid) 20 mg PO DAILY [facility] Last Admin: 06/07/18 09:33 Dose: 20 mg Furosemide (Lasix) 40 mg PO DAILY [facility] Last Admin: 06/07/18 09:33 Dose: 40 mg Heparin Sodium (Porcine) (Heparin) 5,000 units SC Q8 [facility] Last Admin: 06/07/18 15:00 Dose: Not Given Influenza Virus Vaccine (Fluzone Quad [id number]) 60 mcg IM .ONCE ONE Stop: 06/08/18 10:01 Metoprolol Tartrate (Lopressor) 100 mg PO BID [facility] Last Admin: 06/07/18 09:33 Dose: 100 mg Pneumococcal Polyvalent Vaccine (Pneumovax 23 Vaccine) 0.5 ml IM .ONCE ONE Stop: 06/08/18 14:01 Rosuvastatin Calcium (Crestor) 5 mg PO HS [facility] Last Admin: 06/06/18 22:27 Dose: 5 mg Spironolactone (Aldactone) 25 mg PO BID [facility] Last Admin: 06/07/18 09:33 Dose: 25 mg Results - Vital Signs Recent Vital Signs: Last Vital Signs Temp 97.6 F 06/07/18 15:44 Pulse 64 06/07/18 15:44 Resp 20 06/07/18 15:44 BP 118/71 06/07/18 15:44 Pulse Ox 96 06/07/18 15:44 - Labs Result Diagrams: 06/07/18 08:05 06/07/18 08:05 Labs: Laboratory Results - last 24 hr 06/07/18 06/07/18 08:05 08:05 WBC 3.8 L RBC 4.10 Hgb 9.8 L Hct 31.4 L MCV 76.5 L MCH 24.0 L MCHC 31.3 L RDW 17.2 H Plt Count 234 MPV 9.5 Neut % (Auto) 35.8 L Lymph % (Auto) 58.1 H [place] % (Auto) 3.4 Eos % (Auto) 1.8 Baso % (Auto) 0.9 Neut # (Auto) 1.4 L Lymph # (Auto) 2.2 [place] # (Auto) 0.1 Eos # (Auto) 0.1 Baso # (Auto) 0.0 Sodium 140 Potassium 4.3 Chloride 105 Carbon Dioxide 24 Anion Gap 15 BUN 21 H Creatinine 0.9 Est GFR ( Amer) > 60 Est GFR (Non-Af Amer) > 60 Random Glucose 131 H Calcium 9.5 Phosphorus 4.0 Magnesium 2.0 Total Bilirubin 0.4 AST 20 ALT 27 Alkaline Phosphatase 116 Total Protein 7.8 Albumin 4.3 Globulin 3.5 Albumin/Globulin Ratio 1.2 Assessment & Plan - Assessment and Plan (Free Text) Assessment: Ms. Patino has symptoms related to set alarms activated due to low generator levels This warrants a generator change; the original indication was not clear; the episodes of tachycardia are of unclear significance The elevated capture threshold is a concern albeit the sensed signal is excellent and the trends seem to be stable; the identity of the lead could not be ascertained if it carried any advisory Discussed with patient at length prognosis procedures including lead revision generator change; risks including but not limited to bleeding infection pneumothorax tamponade; options including a life vest/external defibrillator were discussed; she verbalized understanding and assents Discussed with Dr. 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
--- NOTE | 2018-06-07 22:31 | CP.PCM.PN ---
Subjective - Date & Time of Evaluation Date of Evaluation: 06/07/18 Time of Evaluation: 16:20 - Subjective Subjective: Pt seen and examined at bedside. Pt reports dysuria, UA pos, will start on Cipro on d/c for uti denies cp sob fc nv Objective - Vital Signs/Intake and Output Vital Signs (last 24 hours): Temp Pulse Resp BP Pulse Ox 98.3 F 73 18 115/76 98 06/06/18 07:00 06/06/18 07:00 06/06/18 07:00 06/06/18 07:00 06/06/18 07:00 - Medications Medications: Current Medications Acetaminophen (Tylenol 325mg Tab) 650 mg PO Q6 PRN PRN Reason: Pain, Mild (1-3) Aspirin (Ecotrin) 81 mg PO DAILY [facility] Enalapril Maleate (Vasotec) 20 mg PO DAILY [facility] Famotidine (Pepcid) 20 mg PO DAILY [facility] Furosemide (Lasix) 40 mg PO DAILY [facility] Heparin Sodium (Porcine) (Heparin) 5,000 units SC Q8 [facility] Last Admin: 06/06/18 06:16 Dose: 5,000 units Influenza Virus Vaccine (Fluzone Quad [id number]) 60 mcg IM .ONCE ONE Stop: 06/08/18 10:01 Metoprolol Tartrate (Lopressor) 100 mg PO BID [facility] Pneumococcal Polyvalent Vaccine (Pneumovax 23 Vaccine) 0.5 ml IM .ONCE ONE Stop: 06/08/18 14:01 Rosuvastatin Calcium (Crestor) 5 mg PO HS [facility] Spironolactone (Aldactone) 25 mg PO BID [facility] - Labs Labs: 06/06/18 04:20 06/06/18 04:20 PT 11.8 SECONDS (9.7-12.2) 06/05/18 20:49 INR 1.1 06/05/18 20:49 APTT 35 SECONDS (21-34) H 06/05/18 20:49 Assessment and Plan - Assessment and Plan (Free Text) Assessment: 57 F w/ PMHx: HTN, CHF w/ AICD placement 7 years prior, presents to ED for 1 day of "humming & vibrating" noise from AICD. 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 - c/w home meds: metoprolol tartrate 100mg BID quinapril 40mg daily lasix 40mg daily spironolactone 25 mg BID - 06/06 ECHO: HTN - prior Hx - c/w home meds: metoprolol tartrate 100mg BID quinapril 40mg daily lasix 40mg daily spironolactone 25 mg BID aspirin 81 mg daily crestor 5mg daily Prophylaxis - DVT: Heparin 5000 units Q8 - GI: Pepcid 20 mg daily EP Eval pending Objective - Vital Signs/Intake and Output Vital Signs (last 24 hours): Temp Pulse Resp BP Pulse Ox 97.6 F 64 20 118/71 96 06/07/18 15:44 06/07/18 15:44 06/07/18 15:44 06/07/18 15:44 06/07/18 15:44 Intake and Output: 06/07/18 06/08/18 18:59 06:59 Intake Total 400 Balance 400 - Medications Medications: Current Medications Acetaminophen (Tylenol 325mg Tab) 650 mg PO Q6 PRN PRN Reason: Pain, Mild (1-3) Aspirin (Ecotrin) 81 mg PO DAILY [facility] Last Admin: 06/07/18 09:33 Dose: 81 mg Enalapril Maleate (Vasotec) 20 mg PO DAILY [facility] Last Admin: 06/07/18 09:33 Dose: 20 mg Famotidine (Pepcid) 20 mg PO DAILY [facility] Last Admin: 06/07/18 09:33 Dose: 20 mg Furosemide (Lasix) 40 mg PO DAILY [facility] Last Admin: 06/07/18 09:33 Dose: 40 mg Heparin Sodium (Porcine) (Heparin) 5,000 units SC Q8 [facility] Last Admin: 06/07/18 21:54 Dose: Not Given Influenza Virus Vaccine (Fluzone Quad [id number]) 60 mcg IM .ONCE ONE Stop: 06/08/18 10:01 Metoprolol Tartrate (Lopressor) 100 mg PO BID [facility] Last Admin: 06/07/18 18:55 Dose: Not Given Pneumococcal Polyvalent Vaccine (Pneumovax 23 Vaccine) 0.5 ml IM .ONCE ONE Stop: 06/08/18 14:01 Rosuvastatin Calcium (Crestor) 5 mg PO HS [facility] Last Admin: 06/07/18 21:35 Dose: 5 mg Spironolactone (Aldactone) 25 mg PO BID [facility] Last Admin: 06/07/18 18:49 Dose: Not Given - Labs Labs: 06/07/18 08:05 06/07/18 08:05 PT 11.8 SECONDS (9.7-12.2) 06/05/18 20:49 INR 1.1 06/05/18 20:49 APTT 35 SECONDS (21-34) H 06/05/18 20:49
[2018-06-08 08:02] VITALS: TEMP 97.7; O2SAT 100
[2018-06-08 08:28] LABS: EOS # 0.1 K/uL (0.0-0.7); HEMOGLOBIN 9.7 g/dL (11.0-16.0); LYMPH # 1.6 K/uL (1.0-4.3); LYMPH % 56.1 % (20.0-40.0); MEAN CELL VOLUME 76.7 fL (81.0-99.0); MEAN CORPUSCULAR HEMOGLOBIN 23.8 pg (27.0-31.0); MEAN CORPUSCULAR HGB CONC 31.1 g/dL (33.0-37.0); MEAN PLATELET VOLUME 9.1 fL (7.2-11.7); MONO # 0.1 K/uL (0.0-0.8); MONO % 4.7 % (0.0-10.0); NEUT % 36.2 % (50.0-75.0); RBC 4.07 Mil/uL (3.80-5.20); WHITE BLOOD COUNT 2.9 K/uL (4.8-10.8)
[2018-06-08 08:57] LABS: ALB/GLOB RATIO 1.1 (1.0-2.1); ALT/SGPT 28 U/L (9-52); AST/SGOT 31 U/L (14-36); BLOOD UREA NITROGEN 19 mg/dL (7-17); GFR NON-AFRICAN AMERICAN > 60
[2018-06-08] MEDS ORDERED: Influenza Vaccine 60 MCG/0.5 ML SYR (3 yr & up) IM ONE (10:00)
[2018-06-08 10:13] VITALS: BP 113/75; PULSE 57
[2018-06-08] MEDS ORDERED: Pneumococcal 23-Valent Vaccine IM ONE (14:00)
--- NOTE | 2018-06-08 22:55 | CP.PCM.PN ---
Subjective - Date & Time of Evaluation Date of Evaluation: 06/08/18 Time of Evaluation: 08:10 - Subjective Subjective: Pt seen and examined No cardiac events noted Physical Examination Assessment and Plan - Assessment and Plan (Free Text) Assessment: 57 F w/ PMHx: HTN, CHF w/ AICD placement 7 years prior, presents to ED for 1 day of "humming & vibrating" noise from AICD. 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 - c/w home meds: metoprolol tartrate 100mg BID quinapril 40mg daily lasix 40mg daily spironolactone 25 mg BID - 06/06 ECHO: HTN - prior Hx - c/w home meds: metoprolol tartrate 100mg BID quinapril 40mg daily lasix 40mg daily spironolactone 25 mg BID aspirin 81 mg daily crestor 5mg daily Prophylaxis - DVT: Heparin 5000 units Q8 - GI: Pepcid 20 mg daily Patient to be transferred for ICD battery change Objective - Vital Signs/Intake and Output Vital Signs (last 24 hours): Temp Pulse Resp BP Pulse Ox 97.7 F 57 L 20 113/75 100 06/08/18 07:00 06/08/18 10:12 06/08/18 07:00 06/08/18 10:15 06/08/18 07:00 - Labs Labs: 06/08/18 08:18 06/08/18 08:18 PT 11.8 SECONDS (9.7-12.2) 06/05/18 20:49 INR 1.1 06/05/18 20:49 APTT 35 SECONDS (21-34) H 06/05/18 20:49
== END 2018-06-08 13:59 | disposition short-term general hospital (02) | DRG 309 ==
LOC: C.ER 19:43 → C.9E 22:35 → C.6T 22:56
PROVIDERS: ADMIT Internal Medicine; ATTEND Internal Medicine
DX: T82.111A Breakdown (mechanical) of cardiac pulse generator (battery), initial encounter (principal); N39.0 Urinary tract infection, site not specified; I42.0 Dilated cardiomyopathy; Y71.2 Prosthetic and other implants, materials and accessory cardiovascular devices associated with adverse incidents; I11.0 Hypertensive heart disease with heart failure; I50.9 Heart failure, unspecified; Z79.82 Long term (current) use of aspirin

== ENCOUNTER 2018-10-14 09:32 | Outpatient (CLI) | payer OTHER | END 2018-10-14 09:33 | disposition home or self-care (01) | LOC: C.CARD 09:32 | DX: I10 Essential (primary) hypertension (principal); R06.02 Shortness of breath ==

== ENCOUNTER 2018-10-19 22:43 | Inpatient (IN) | payer OTHER ==
[2018-10-19] MEDS ORDERED: Nitroglycerin 2% Ointment Foilpak UD TOP STA (23:23)
--- NOTE | 2018-10-19 23:26 | C.PDOC ---
History Of Present Illness 58 year old female presents with intermittent chest pain that began today associated with SOB. Patient reports pain is more so with exertion. Denies fever, chills, nausea, or vomiting. Chief Complaint (Nursing): Chest Pain History Per: Patient History/Exam Limitations: no limitations Onset/Duration Of Symptoms: Hrs, Intermittent Episodes Current Symptoms Are (Timing): Still Present Associated Symptoms: Dyspnea Modifying Factors: None Exacerbating Factors: None Alleviating Factors: None Recent travel outside of the [place]: No Past Medical History Reviewed: Historical Data, Nursing Documentation, Vital Signs Vital Signs: Last Vital Signs Temp 99.4 F 10/19/18 22:53 Pulse 92 H 10/19/18 22:53 Resp 20 10/19/18 22:53 BP 122/77 10/19/18 22:53 Pulse Ox 99 10/19/18 22:53 - Medical History PMH: Back Problems, CHF, HTN Denies: Chronic Kidney Disease Family History: States: No Known Family Hx - Social History Hx Alcohol Use: No Hx Substance Use: No - Immunization History Hx Tetanus Toxoid Vaccination: No Hx Influenza Vaccination: Yes Hx Pneumococcal Vaccination: No Review Of Systems Constitutional: Negative for: Fever, Chills Cardiovascular: Positive for: Chest Pain. Negative for: Palpitations Respiratory: Positive for: Shortness of Breath. Negative for: Cough Gastrointestinal: Negative for: Nausea, Vomiting Neurological: Negative for: Weakness, Numbness Physical Exam - Physical Exam Appears: Non-toxic, Other (Mild distress) Skin: Normal Color, Warm, Dry Head: Atraumatic, Normacephalic Oral Mucosa: Moist Neck: Normal, Supple Chest: Symmetrical, No Tenderness Cardiovascular: Rhythm Regular Respiratory: Normal Breath Sounds, No Rales, No Rhonchi, No Wheezing Gastrointestinal/Abdominal: Soft, No Tenderness Neurological/Psych: Oriented x3, Normal Speech ED Course And Treatment - Laboratory Results Result Diagrams: 10/19/18 23:34 10/19/18 23:34 ECG: Interpreted By Me, Viewed By Me ECG Rhythm: Sinus Rhythm, ST/T Changes ECG Interpretation: No Acute Changes, No Changes From Prior, Abnormal Interpretation Of ECG: NSR, ST-T changes-lateral leads, No sinificntr change from old tracings of 06/05/2018, Rate From EC O2 Sat by Pulse Oximetry: 99 Progress Note: EKG, blood work, and CXR ordered. Nitrobid applied. Disposition Discussed With : Arvind Haro Jr. Doctor Will See Patient In The: Hospital Counseled Patient/Family Regarding: Diagnosis - Disposition Disposition: HOSPITALIZED Disposition Time: 03:07 Condition: STABLE Forms: [facility] ([place]) - POA Present On Arrival: None - Clinical Impression Clinical Impression: Leukemia, acute - Scribe Statement The provider has reviewed the documentation as recorded by the Scribmonica Lugo All medical record entries made by the Gaylaibmonica were at my direction and personally dictated by me. I have reviewed the chart and agree that the record accurately reflects my personal performance of the history, physical exam, medical decision making, and the department course for this patient. I have also personally directed, reviewed, and agree with the discharge instructions and disposition.
[2018-10-19] MEDS ORDERED: Nitroglycerin 2% Ointment Foilpak UD TOP ONE (23:42)
[2018-10-19 23:45] LABS: MEAN CORPUSCULAR HEMOGLOBIN 23.8 pg (27.0-31.0); MEAN CORPUSCULAR HGB CONC 29.6 g/dL (33.0-37.0); MEAN PLATELET VOLUME 8.6 fL (7.2-11.7); RBC 3.17 Mil/uL (3.80-5.20); RED CELL DISTRIBUTION WIDTH 20.5 % (11.5-14.5)
[2018-10-19 23:46] LABS: HEMOGLOBIN 7.6 g/dL (11.0-16.0); MEAN CELL VOLUME 80.5 fL (81.0-99.0); PLATELET COUNT 82 K/uL (130-400)
[2018-10-19 23:48] LABS: ALBUMIN 4.4 g/dL (3.5-5.0); BLOOD UREA NITROGEN 18 mg/dL (7-17); CALCIUM 9.4 mg/dl (8.6-10.4); GFR NON-AFRICAN AMERICAN 57; WHITE BLOOD COUNT 73.9 K/uL (4.8-10.8)
[2018-10-19 23:49] LABS: ALT/SGPT 57 U/L (9-52); AST/SGOT 64 U/L (14-36)
[2018-10-20] LABS: B-TYPE NATRIURETIC PEPTIDE 142 pg/mL (0-900)
[2018-10-20 00:18] LABS: INR 1.2; PROTHROMBIN TIME 12.9 SECONDS (9.7-12.2)
[2018-10-20] MEDS ORDERED: Iodixanol 320 MG/ML 100 ML BOTTLE IV ONE (00:23)
[2018-10-20] MEDS ORDERED: Iodixanol 320 mg/ml 150 ml Bottle IV ONE (02:13)
[2018-10-20 03:42] LABS: BLASTS 56 % (0-0); LYMPHOCYTE 16 % (20-40); MONOCYTE 27 % (0-10); NEUTROPHIL 1 % (50-75); NUCLEATED RED BLOOD CELL 2 % (0-0); TOTAL CELLS COUNTED 100
[2018-10-20 03:43] LABS: PLATELET ESTIMATE DECREASED (NORMAL)
[2018-10-20 03:44] LABS: ANISOCYTOSIS MARKED; POIKILOCYTOSIS MODERATE; POLYCHROMIC MODERATE
--- NOTE | 2018-10-20 03:44 | CP.PCM.HP ---
History of Present Illness - History of Present Illness History of Present Illness: H&P for Dr. Connor 57 F w/ PMHx: HTN, CHF w/ AICD replaced 2 months prior presents to ED for 3-4 days of chest pain. Patient states pain is pressure and needle like in nature , 10/10 intermit pain. Patient states she has nausea and SOB with symptoms. Patient denies recent travel (last travel was 3 months prior to [facility]). Patient denies fevers, chills. Patient states she used to be able to walk about 2 blocks prior to becoming SOB, now she can barely walk 1 block. ROS: Denies diarrhea, constipation, headaches, vision changes; pt admits to diffuse abdominal pain, radiating to back, lumbar region PMD: Tahir PMHx: HTN, CHF w/ AICD replaced 2 months prior Meds: See EMR PSHx:AICD replaced 2 months prior, R eye surgery (pt unsure exact details) Allergies: NKDA Social: denies tobacco, ETOH, illicit drug use Present on Admission - Present on Admission Any Indicators Present on Admission: No History of DVT/PE: No History of Uncontrolled Diabetes: No Urinary Catheter: No Decubitus Ulcer Present: No Review of Systems - Constitutional Constitutional: absent: Chills, Fever, Night Sweats - EENT Eyes: absent: Blurred Vision, Change in Vision Ears: absent: Decreased Hearing Nose/Mouth/Throat: absent: Sinus Pressure - Cardiovascular Cardiovascular: Chest Pain, Chest Pain at Rest, Dyspnea, Dyspnea on Exertion - Respiratory Respiratory: Dyspnea, Dyspnea on Exertion. absent: Cough, Pain on Inspiration - Gastrointestinal Gastrointestinal: Abdominal Pain. absent: Bloating, Constipation, Excessive Flatus - Genitourinary Genitourinary: absent: Change in Urinary Stream, Hematuria - Musculoskeletal Musculoskeletal: absent: Arthralgias, Joint Swelling, Muscle Weakness - Integumentary Integumentary: absent: Alopecia, Bleeding Lesions - Neurological Neurological: absent: Abnormal Hearing, Behavioral Changes - Psychiatric Psychiatric: absent: Confusion, Depression - Endocrine Endocrine: absent: Cold Intolorance, Deepening of Voice Past Patient History - Infectious Disease Hx of Infectious Diseases: None - Past Medical History & Family History Past Medical History?: Yes - Past Social History Smoking Status: Never Smoked - CARDIAC Hx Congestive Heart Failure: Yes Hx Hypertension: Yes - PULMONARY Hx Respiratory Disorders: No - NEUROLOGICAL Hx Neurological Disorder: No - HEENT Hx HEENT Problems: No - RENAL Hx Chronic Kidney Disease: No - ENDOCRINE/METABOLIC Hx Endocrine Disorders: No - HEMATOLOGICAL/ONCOLOGICAL Hx Blood Disorders: No - INTEGUMENTARY Hx Dermatological Problems: No - MUSCULOSKELETAL/RHEUMATOLOGICAL Hx Musculoskeletal Disorders: No Hx Falls: No - GASTROINTESTINAL Hx Gastrointestinal Disorders: No - GENITOURINARY/GYNECOLOGICAL Hx Genitourinary Disorders: No - PSYCHIATRIC Hx Substance Use: No - SURGICAL HISTORY Hx Surgeries: Yes Hx Section: Yes Hx Orthopedic Surgery: Yes (back) Other/Comment: AICD 7 years ago - ANESTHESIA Hx Anesthesia: Yes Hx Anesthesia Reactions: No Meds Allergies/Adverse Reactions: Allergies Allergy/AdvReac Type Severity Reaction Status Date / Time No Known Allergies Allergy Verified 06/05/18 19:56 Physical Exam - Constitutional Appears: Non-toxic, No Acute Distress - Head Exam Head Exam: NORMAL INSPECTION - Eye Exam Eye Exam: EOMI, Normal appearance, PERRL Pupil Exam: NORMAL ACCOMODATION - ENT Exam ENT Exam: Mucous Membranes Moist - Respiratory Exam Respiratory Exam: Clear to Auscultation Bilateral, NORMAL BREATHING PATTERN. absent: Rales, Rhonchi, Wheezes - Cardiovascular Exam Cardiovascular Exam: REGULAR RHYTHM, +S1, +S2. absent: Systolic Murmur - GI/Abdominal Exam GI & Abdominal Exam: Normal Bowel Sounds, Soft, Tenderness Additional comments: diffuse tenderness on palpation normal bowel sounds, no tympanic abdomin - Extremities Exam Extremities exam: Positive for: full ROM, normal inspection. Negative for: calf tenderness, pedal edema - Back Exam Back exam: CVA tenderness (L), CVA tenderness (R) - Neurological Exam Neurological exam: Alert, Oriented x3 - Psychiatric Exam Psychiatric exam: Normal Affect, Normal Mood - Skin Skin Exam: Dry, Intact, Normal Color, Warm Results - Vital Signs Recent Vital Signs: Last Vital Signs Temp 99.4 F 10/19/18 22:53 Pulse 96 H 10/20/18 02:31 Resp 22 10/20/18 02:31 BP 122/73 10/20/18 02:31 Pulse Ox 99 10/20/18 03:09 - Labs Result Diagrams: 10/20/18 04:21 10/20/18 04:21 Labs: Laboratory Results - last 24 hr 10/19/18 10/19/18 10/19/18 23:34 23:34 23:34 WBC 73.9 H* D RBC 3.17 L Hgb 7.6 L D Hct 25.5 L MCV 80.5 L D MCH 23.8 L MCHC 29.6 L RDW 20.5 H Plt Count 82 L D MPV 8.6 PT INR APTT D-Dimer, Quantitative > 5250 H Sodium 140 Potassium 4.4 Chloride 102 Carbon Dioxide 28 Anion Gap 14 BUN 18 H Creatinine 1.0 Est GFR ( Amer) > 60 Est GFR (Non-Af Amer) 57 Random Glucose 105 Calcium 9.4 Total Bilirubin 0.6 AST 64 H D ALT 57 H D Alkaline Phosphatase 91 Troponin I < 0.0120 NT-Pro-B Natriuret Pep 142 Total Protein 8.6 H Albumin 4.4 Globulin 4.2 H Albumin/Globulin Ratio 1.0 Blood Type Antibody Screen 10/20/18 10/20/18 00:11 00:16 WBC RBC Hgb Hct MCV MCH MCHC RDW Plt Count MPV PT 12.9 H INR 1.2 APTT 28 D-Dimer, Quantitative Sodium Potassium Chloride Carbon Dioxide Anion Gap BUN Creatinine Est GFR ( Amer) Est GFR (Non-Af Amer) Random Glucose Calcium Total Bilirubin AST ALT Alkaline Phosphatase Troponin I NT-Pro-B Natriuret Pep Total Protein Albumin Globulin Albumin/Globulin Ratio Blood Type O POSITIVE Antibody Screen Negative Assessment & Plan - Assessment and Plan (Free Text) Assessment: 58F F w/ hx of HTN, ACID, CHF presents to ED for chest pain, now had markedly elevated WBC, anemic, & thrombopenic. Plan: Leukocytosis Anemia Thrombopenia - consult heme/onc for further orders as per Dr. connor Chest Pain R/o ACS - ERICKA X 1 negative - elevated D- Dimer - CT: no PE - EKG: NSR w/ HR 69 - Repeat ROMIs Q6H Chronic CHF w/ reduced EF Hypertension - c/w aldactone 25 mg daily, metoprolol 100 mg daily, enalipril 20 mg daily, aspirin 81 mg daily PPx - DVT: SCDs, heparin contraindicated 2/2 to anemia
[2018-10-20 03:45] LABS: HYPOCHROMIC SLIGHT
[2018-10-20 03:46] LABS: OVALOCYTES SLIGHT; SCHISTOCYTES SLIGHT; TARGET CELLS SLIGHT; TEARDROP CELLS SLIGHT
[2018-10-20 04:28] LABS: HEMOGLOBIN 6.9 g/dL (11.0-16.0); MEAN CELL VOLUME 80.9 fL (81.0-99.0); MEAN CORPUSCULAR HGB CONC 29.7 g/dL (33.0-37.0); MEAN PLATELET VOLUME 8.4 fL (7.2-11.7); PLATELET COUNT 71 K/uL (130-400); RBC 2.88 Mil/uL (3.80-5.20)
[2018-10-20 04:51] VITALS: RESP 20
[2018-10-20 04:54] LABS: WHITE BLOOD COUNT 71.8 K/uL (4.8-10.8)
[2018-10-20 04:57] LABS: CK-MB 0.26 ng/mL (0.0-3.38)
[2018-10-20 05:01] LABS: ALB/GLOB RATIO 1.1 (1.0-2.1); ALT/SGPT 51 U/L (9-52); AST/SGOT 51 U/L (14-36); BLOOD UREA NITROGEN 18 mg/dL (7-17); CALCIUM 8.9 mg/dl (8.6-10.4); GFR NON-AFRICAN AMERICAN > 60
[2018-10-20 05:17] VITALS: PULSE 86
[2018-10-20 08:54] LABS: BASO # 0.1 K/uL (0.0-0.2); BASO % 0.2 % (0.0-2.0); EOS # 0.2 K/uL (0.0-0.7); EOS % 0.2 % (0.0-4.0); LYMPH # 9.6 K/uL (1.0-4.3); MONO # 60.9 K/uL (0.0-0.8); MONO % 82.5 % (0.0-10.0); NEUT # 3.1 K/uL (1.8-7.0); NEUT % 4.1 % (50.0-75.0); NRBC % 1.1 % (0.0-2.0)
--- NOTE | 2018-10-20 09:04 | CP.PCM.PN ---
Subjective - Date & Time of Evaluation Date of Evaluation: 10/20/18 Time of Evaluation: 07:30 Objective - Vital Signs/Intake and Output Vital Signs (last 24 hours): Temp Pulse Resp BP Pulse Ox 97.6 F 86 20 123/74 98 10/20/18 04:49 10/20/18 08:26 10/20/18 04:49 10/20/18 04:49 10/20/18 04:49 Intake and Output: 10/20/18 10/20/18 06:59 18:59 Intake Total 240 Balance 240 - Medications Medications: Current Medications Aspirin (Ecotrin) 81 mg PO DAILY [facility] Enalapril Maleate (Vasotec) 20 mg PO DAILY [facility] Furosemide (Lasix) 40 mg PO DAILY [facility] Ibuprofen (Motrin Tab) 400 mg PO STAT [facility] Stop: 10/20/18 09:03 Metoprolol Succinate (Toprol Xl) 100 mg PO DAILY [facility] Pantoprazole Sodium (Protonix Ec Tab) 40 mg PO DAILY [facility] Rosuvastatin Calcium (Crestor) 5 mg PO HS [facility] Spironolactone (Aldactone) 25 mg PO DAILY [facility] - Labs Labs: 10/20/18 04:21 10/20/18 04:21 PT 12.9 SECONDS (9.7-12.2) H 10/20/18 00:11 INR 1.2 10/20/18 00:11 APTT 28 SECONDS (21-34) 10/20/18 00:11
[2018-10-20 09:06] LABS: EOS % 0.3 % (0.0-4.0); LYMPH % 6.4 % (20.0-40.0); MONO % 86.6 % (0.0-10.0); NEUT % 6.2 % (50.0-75.0)
[2018-10-20 09:07] LABS: BASO % 0.5 % (0.0-2.0); EOS # 0.2 K/uL (0.0-0.7); LYMPH # 4.6 K/uL (1.0-4.3); MONO # 62.1 K/uL (0.0-0.8); NEUT # 4.5 K/uL (1.8-7.0); NRBC % 0.4 % (0.0-2.0)
[2018-10-20 09:08] LABS: BASO # 0.4 K/uL (0.0-0.2)
[2018-10-20 09:17] LABS: LYMPHOCYTE 18 % (20-40); MONOCYTE 29 % (0-10); NEUTROPHIL 2 % (50-75); TOTAL CELLS COUNTED 100
[2018-10-20 09:19] LABS: BLASTS 51 % (0-0)
[2018-10-20 09:20] LABS: PLATELET ESTIMATE DECREASED (NORMAL)
[2018-10-20 09:21] LABS: ANISOCYTOSIS MODERATE; HYPOCHROMIC MODERATE; MICROCYTOSIS MODERATE; OVALOCYTES MODERATE; POIKILOCYTOSIS MODERATE
[2018-10-20 09:22] LABS: TEARDROP CELLS SLIGHT
[2018-10-20 09:23] LABS: BURR CELLS SLIGHT; TARGET CELLS SLIGHT
[2018-10-20 09:24] LABS: LARGE PLATELETS PRESENT
[2018-10-20 09:26] LABS: GIANT PLATELETS PRESENT
[2018-10-20 09:31] VITALS: BP 112/62
[2018-10-20] MEDS ORDERED: Metoprolol Succinate 100 mg XL Tab PO SCH (10:00)
[2018-10-20] MEDS ORDERED: Pantoprazole 40 mg EC Tab PO SCH (10:00)
[2018-10-20 10:40] LABS: LIPASE 32 U/L (23-300)
[2018-10-20 10:56] VITALS: TEMP 97.8; O2SAT 97
--- NOTE | 2018-10-20 10:58 | RAD ---
HISTORY: chest pain COMPARISON: Chest x-ray performed 06/05/18 TECHNIQUE: Chest, one view. FINDINGS: Examination limited by habitus and hypoinflation. LUNGS: No focal consolidation. Please note that chest x-ray has limited sensitivity for the detection of pulmonary masses. PLEURA: No significant pleural effusion identified. No definite pneumothorax . CARDIOVASCULAR: Single lead left-sided AICD. Heart size appears within normal limits. OSSEOUS STRUCTURES: Acromioclavicular arthropathy. VISUALIZED UPPER ABDOMEN: Unremarkable. OTHER FINDINGS: None. IMPRESSION: Single lead left-sided AICD. No focal consolidation.
--- NOTE | 2018-10-20 11:37 | CT ---
Date of service: 10/20/2018 CTA chest PE protocol Indication: SOB/ elevated Dimer Technique: Contiguous axial images were obtained through the chest with intravenous contrast enhancement. Sagittal and coronal reconstructions were generated and reviewed. This CT exam was performed using 1 or more of the following dose reduction techniques: Automated exposure control, adjustment of the MAA and/or kV according to patient size, and/or use of iterative reconstruction technique. IV contrast: 100 mL Visipaque 320 IV Radiation dose (DLP): 1058.07 MGy-cm. Comparison: Chest x-ray performed 10/19/18 Findings: Visualized portions of the inferior thyroid gland appear unremarkable. The mediastinal and hilar vascular structures appear within normal limits. Single lead left-sided AICD. The heart appears within normal limits of size. Sub cm mediastinal lymph nodes, nonspecific. There is suboptimal opacification of the pulmonary arteries due to missed bolus of the intravenous contrast limiting evaluation for pulmonary embolus. Given this limitation, there are no visible intraluminal filling defects within the central pulmonary arteries to suggest central pulmonary embolism. No focal consolidation. No pleural effusion. No pneumothorax. No suspicious pulmonary nodules measuring greater than 5 mm. Limited visualized portions of the upper abdomen appear grossly unremarkable. No acute osseous abnormality is detected. Impression: There is suboptimal opacification of the pulmonary arteries due to missed bolus of the intravenous contrast limiting evaluation for pulmonary embolus. Given this limitation, there are no visible intraluminal filling defects within the central pulmonary arteries to suggest central pulmonary embolism. Preliminary impression was provided by [facility]. Study marked for PA review.
[2018-10-20 12:18] LABS: CK-MB 0.28 ng/mL (0.0-3.38)
--- NOTE | 2018-10-20 13:02 | CP.PCM.DIS ---
Provider - Provider Date of Admission: 10/20/18 03:09 Attending physician: Arvind Haro Jr, MD Primary care physician: Dr. Haro Consults: 10/20/18 05:52 Hematology Oncology Consult Routine Comment: Consulting Provider: Guerda Askew Consulting Physician: Guerda Askew Reason for Consult: new leukocytosis, anemia, thrombopenia 10/20/18 07:21 Cardiology Consult Routine Comment: Consulting Provider: Lj Mccullough Consulting Physician: Lj Mccullough Reason for Consult: chest pain s/p AICD placement, abnormal EKG Time Spent in preparation of Discharge (in minutes): 29 Diagnosis - Discharge Diagnosis (1) Abnormal CBC Status: Acute (2) Elevated d-dimer Status: Acute Hospital Course - Lab Results Lab Results: Most Recent Lab Values WBC 71.8 K/uL (4.8-10.8) H* 10/20/18 04:21 RBC 2.88 Mil/uL (3.80-5.20) L 10/20/18 04:21 Hgb 6.9 g/dL (11.0-16.0) L 10/20/18 04:21 Hct 23.3 % (34.0-47.0) L 10/20/18 04:21 MCV 80.9 fL (81.0-99.0) L 10/20/18 04:21 MCH 24.0 pg (27.0-31.0) L 10/20/18 04:21 MCHC 29.7 g/dL (33.0-37.0) L 10/20/18 04:21 RDW 20.0 % (11.5-14.5) H 10/20/18 04:21 Plt Count 71 K/uL (130-400) L 10/20/18 04:21 MPV 8.4 fL (7.2-11.7) 10/20/18 04:21 Neut % (Auto) 6.2 % (50.0-75.0) L 10/20/18 04:21 Lymph % (Auto) 6.4 % (20.0-40.0) L 10/20/18 04:21 [place] % (Auto) 86.6 % (0.0-10.0) H 10/20/18 04:21 Eos % (Auto) 0.3 % (0.0-4.0) 10/20/18 04:21 Baso % (Auto) 0.5 % (0.0-2.0) 10/20/18 04:21 Neut # (Auto) 4.5 K/uL (1.8-7.0) 10/20/18 04:21 Lymph # (Auto) 4.6 K/uL (1.0-4.3) H 10/20/18 04:21 [place] # (Auto) 62.1 K/uL (0.0-0.8) H 10/20/18 04:21 Eos # (Auto) 0.2 K/uL (0.0-0.7) 10/20/18 04:21 Baso # (Auto) 0.4 K/uL (0.0-0.2) H 10/20/18 04:21 Neutrophils % (Manual) 2 % (50-75) L 10/20/18 04:21 Lymphocytes % (Manual) 18 % (20-40) L 10/20/18 04:21 Monocytes % (Manual) 29 % (0-10) H 10/20/18 04:21 Blast Cells % 51 % (0-0) H 10/20/18 04:21 Nucleated RBC % 2 % (0-0) H 10/19/18 23:34 Platelet Estimate Decreased (NORMAL) L 10/20/18 04:21 Large Platelets Present 10/20/18 04:21 Giant Platelets Present 10/20/18 04:21 Polychromasia Moderate 10/19/18 23:34 Hypochromasia (manual) Moderate 10/20/18 04:21 Poikilocytosis (manual Moderate 10/20/18 04:21 Anisocytosis (manual) Moderate 10/20/18 04:21 Microcytosis (manual) Moderate 10/20/18 04:21 Macrocytosis (manual) Moderate 10/20/18 04:21 Spherocytes 10/19/18 23:34 Target Cells Slight 10/20/18 04:21 Tear Drop Cells Slight 10/20/18 04:21 Ovalocytes Moderate 10/20/18 04:21 Julius Cells Slight 10/20/18 04:21 Schistocytes Slight 10/19/18 23:34 Smear Path Review 10/19/18 23:34 PT 12.9 SECONDS (9.7-12.2) H 10/20/18 00:11 INR 1.2 10/20/18 00:11 APTT 28 SECONDS (21-34) 10/20/18 00:11 D-Dimer, Quantitative > 5250 ng/mlDDU (0-243) H 10/19/18 23:34 Sodium 137 mmol/L (132-148) 10/20/18 04:21 Potassium 3.7 mmol/L (3.6-5.2) 10/20/18 04:21 Chloride 101 mmol/L (98-107) 10/20/18 04:21 Carbon Dioxide 27 mmol/L (22-30) 10/20/18 04:21 Anion Gap 12 (10-20) 10/20/18 04:21 BUN 18 mg/dL (7-17) H 10/20/18 04:21 Creatinine 0.9 mg/dL (0.7-1.2) 10/20/18 04:21 Est GFR ( Amer) > 60 10/20/18 04:21 Est GFR (Non-Af Amer) > 60 10/20/18 04:21 Random Glucose 108 mg/dL (65-105) H 10/20/18 04:21 Calcium 8.9 mg/dl (8.6-10.4) 10/20/18 04:21 Phosphorus 4.2 mg/dL (2.5-4.5) 10/20/18 04:21 Magnesium 1.7 mg/dL (1.6-2.3) 10/20/18 04:21 Total Bilirubin 0.4 mg/dL (0.2-1.3) 10/20/18 04:21 AST 51 U/L (14-36) H D 10/20/18 04:21 ALT 51 U/L (9-52) 10/20/18 04:21 Alkaline Phosphatase 98 U/L (38-126) 10/20/18 04:21 Total Creatine Kinase 170 U/L (30-135) H 10/20/18 11:15 CK-MB (Mass) 0.28 ng/mL (0.0-3.38) 10/20/18 11:15 Troponin I < 0.0120 ng/mL (0.00-0.120) 10/20/18 11:15 NT-Pro-B Natriuret Pep 142 pg/mL (0-900) 10/19/18 23:34 Total Protein 7.7 g/dL (6.3-8.3) 10/20/18 04:21 Albumin 4.0 g/dL (3.5-5.0) 10/20/18 04:21 Globulin 3.6 gm/dL (2.2-3.9) 10/20/18 04:21 Albumin/Globulin Ratio 1.1 (1.0-2.1) 10/20/18 04:21 Lipase 32 U/L (23-300) 10/20/18 04:21 Blood Type O POSITIVE 10/20/18 00:16 Antibody Screen Negative 10/20/18 00:16 - Hospital Course Hospital Course: Patient left AMA. I explained the risks of leaving against medical advice and patient understood, chose to leave anyway. Patient reports she will go to [place] for further evaluation. Patient was evaluated for complaints of chest pain. Workup included labs/imaging/heme onc consult/cardiology consult. Abnormal CBC revealed WBC of 73.9, RBC 7.6, monocytosis of 82.5%, platelets of 82. D-dimer elevated 5250. CTA, limited due to contrast timing and imaging was negative for PE where visible. Troponins negative x3. Hematology/oncology Dr. Askew consulted, and Cardiology, Dr. Mccullough consulted. Patient decided to leave before further evaluation. Patient advised to return to ED with any worsening of symptoms. HPI on admission: "57 F w/ PMHx: HTN, CHF w/ AICD replaced 2 months prior presents to ED for 3-4 days of chest pain. Patient states pain is pressure and needle like in nature , 10/10 intermit pain. Patient states she has nausea and SOB with symptoms. Patient denies recent travel (last travel was 3 months prior to [facility]). Patient denies fevers, chills. Patient states she used to be able to walk about 2 blocks prior to becoming SOB, now she can barely walk 1 block." Discharge Exam - Head Exam Head Exam: ATRAUMATIC, NORMAL INSPECTION, NORMOCEPHALIC - Eye Exam Eye Exam: EOMI, Normal appearance - ENT Exam ENT Exam: Normal Exam - Neck Exam Neck exam: Normal Inspection - Respiratory Exam Respiratory Exam: Clear to PA & Lateral, NORMAL BREATHING PATTERN, UNREMARKABLE - Cardiovascular Exam Cardiovascular Exam: REGULAR RHYTHM. absent: Tachycardia - GI/Abdominal Exam GI & Abdominal Exam: Normal Bowel Sounds, Soft, Unremarkable. absent: Distended - Extremities Exam Extremities exam: normal inspection - Neurological Exam Neurological exam: Alert, Oriented x3 - Psychiatric Exam Psychiatric exam: Normal Affect, Normal Mood - Skin Skin Exam: Dry, Intact, Normal Color, Warm Discharge Plan - Follow Up Plan Condition: FAIR Disposition: AGAINST MEDICAL ADVICE
--- NOTE | 2018-10-21 00:06 | CARD ---
APPROVED REPORT Date of service: 10/20/2018 EKG Measurement Heart [id number] <Conclusion> Normal sinus rhythm Voltage criteria for left ventricular hypertrophy Nonspecific ST and T wave abnormality Abnormal ECG
--- NOTE | 2018-10-21 00:06 | CARD ---
APPROVED REPORT Date of service: 10/20/2018 EKG Measurement Heart [id number] <Conclusion> Normal sinus rhythm Voltage criteria for left ventricular hypertrophy Nonspecific T wave abnormality Abnormal ECG
--- NOTE | 2018-10-21 13:34 | CARD ---
APPROVED REPORT Date of service: 10/19/2018 EKG Measurement Heart [id number] [id number] <Conclusion> Normal sinus rhythm Septal infarct, age undetermined T wave abnormality, consider inferior ischemia Abnormal ECG
== END 2018-10-20 14:00 | disposition left against medical advice (07) | DRG 815 ==
LOC: C.ER 22:43 → C.9E 10-20 03:09 → C.5S 10-20 03:55
PROVIDERS: ADMIT Internal Medicine; ATTEND Internal Medicine
DX: D72.829 Elevated white blood cell count, unspecified (principal); I50.22 Chronic systolic (congestive) heart failure; R07.9 Chest pain, unspecified; R79.9 Abnormal finding of blood chemistry, unspecified; I11.0 Hypertensive heart disease with heart failure; D72.821 Monocytosis (symptomatic); D64.9 Anemia, unspecified; D69.6 Thrombocytopenia, unspecified; R79.1 Abnormal coagulation profile; R68.89 Other general symptoms and signs; Z95.810 Presence of automatic (implantable) cardiac defibrillator